=== PATIENT | female | born 1970 | race Caucasian/White ===

== ENCOUNTER 2019-01-31 22:07 | Emergency (ER) | payer OTHER ==
[2019-01-31 22:49] LABS: ADD MAN DIFF? NO
[2019-01-31] MEDS: ONDANSETRON 4 MG INJ IV (22:51)
[2019-01-31] MEDS: morphine 4 MG/ML VIAL IV (22:51)
[2019-01-31 22:53] LABS: WHITE BLOOD COUNT 10.2 10^3/ul (4.8-10.8)
[2019-01-31 22:53] LABS: BASOPHIL # 0.2 10^3/ul (0.0-0.1); BASOPHILS % 1.7 % (0.0-2.0); EOSINOPHILS # 1.2 10^3/ul (0.0-0.5); EOSINOPHILS % 11.3 % (0.0-7.0); HEMATOCRIT 35.8 % (37.0-47.0); HEMOGLOBIN 11.5 g/dl (12.0-16.0); LYMPHOCYTES # 2.5 10^3/ul (0.8-2.9); MEAN CORPUSCULAR HEMOGLOBIN 29.2 pg (29.0-33.0); MEAN CORPUSCULAR HGB CONC 32.1 g/dl (32.0-37.0); MEAN CORPUSCULAR VOLUME 90.9 fl (82.0-101.0); MEAN PLATELET VOLUME 12.6 fl (7.4-10.4); MONOCYTE # 1.1 10^3/ul (0.3-0.9); MONOCYTES % 10.7 % (0.0-11.0); NEUTROPHIL # 5.2 10^3/ul (1.6-7.5); NEUTROPHILS % 51.1 % (39.0-77.0); PLATELET COUNT 497 10^3/UL (140-415); RED BLOOD COUNT 3.94 10^6/ul (4.20-5.40); RED CELL DISTRIBUTION WIDTH 13.2 % (11.5-14.5)
[2019-01-31] MEDS: NITROGLYCERIN 2% 1 GM OINT PKT TD (22:56)
[2019-01-31 23:10] LABS: ALANINE AMINOTRANSFERASE 17 IU/L (13-69); ALBUMIN 4.8 g/dl (3.3-4.9); ALBUMIN/GLOBULIN RATIO 1.33; ALKALINE PHOSPHATASE 66 IU/L (42-121); ANION GAP 14 (5-13); ASPARTATE AMINO TRANSFERASE 21 IU/L (15-46); BLOOD UREA NITROGEN 41 mg/dl (7-20); CALCIUM 9.5 mg/dl (8.4-10.2); CARBON DIOXIDE 23 mmol/L (21-31); CHLORIDE 104 mmol/L (97-110); CREATININE 2.07 mg/dl (0.44-1.00); Estimated GFR 26 mL/min (>60); GLUCOSE 185 mg/dl (70-220); LIPASE 370 U/L (23-300); POTASSIUM 3.9 mmol/L (3.5-5.1); SODIUM 141 mmol/L (135-144); TOTAL PROTEIN 8.4 g/dl (6.1-8.1)
[2019-01-31 23:21] LABS: TROPONIN-I 0.017 ng/ml (0.000-0.120)
[2019-02-01] MEDS: DIPHENHYDRAMINE 50 MG INJ IV (01:22)
[2019-02-01] MEDS ORDERED: ONDANSETRON 4 MG INJ IV (03:00)
[2019-02-01] MEDS ORDERED: ACETAMINOPHEN 325 MG TAB PO (03:00)
[2019-02-01 06:42] LABS: TROPONIN-I 0.017 ng/ml (0.000-0.120)
[2019-02-01 06:52] LABS: CK INDEX 2.3; CREATINE KINASE 123 IU/L (23-200)
[2019-02-01] MEDS: HYDROmorphONE 2 MG/ML SYG IV (08:24)
== END 2019-02-01 10:00 | disposition home or self-care (01) ==
LOC: E/R 02-01 10:00
DX: N28.9 Disorder of kidney and ureter, unspecified (principal); R10.84 Generalized abdominal pain; I10 Essential (primary) hypertension; E11.9 Type 2 diabetes mellitus without complications; J45.909 Unspecified asthma, uncomplicated; Z95.1 Presence of aortocoronary bypass graft; Z79.4 Long term (current) use of insulin; Z79.82 Long term (current) use of aspirin
CPT/HCPCS: 36415; 71045; 74176; 80053; 82550; 82553; 83690; 84484; 85025; 93005; 93306; 96374; 96375; 99285-25